=== PATIENT | male | born 1995 | race African-American/Black ===

== ENCOUNTER → 2020-08-31 | Day surgery (SDC) | payer OTHER ==
[~2020-08-31] MED LIST: ACET500T68 PO; ATOR20TA PO; CHLO4TAB20 PO; CICL6.1H4 IH; DOCU-109 PO; FLUO20CA20 PO; HYDR25TA PO; IPRATRPIUM/ALBUTEROL 0.5/2.5MG 3 ML NEBU. NEB PRN; IV RINGERS SOLUTION,LACTATED 1,000 ML IV SCH; LIDOCAINE 2% PF 5 ML VIAL. ONE; MIDAZOLAM HCL PF 2 MG/2 ML VIAL. IV ONE; MONT10TA80 PO; ONDANSETRON PF 4 MG/2 ML VIAL. IV PRN; PANT40TA6 PO; PROPOFOL 10,000 MCG/ML (20ML) VIAL IV ONE
--- NOTE | 2020-09-05 14:09 | PATHOLOGY ---
[facility] Accession Number: [id number] . 01 Material submitted: . stomach - ANTRUM BIOPSY. Modifiers: ANTRUM . 01 Clinical history: . PRE-OPERATIVE DIAGNOSIS: HEMATEMESIS OPERATIVE PROCEDURE: EGD . 02 Diagnosis: Gastric biopsies, antrum: - Active chronic gastritis, moderate. LBQ 09/05/2020 1036 Local . 02 Comment: Sections of the gastric antral biopsy show congestion and moderate active chronic inflammation. A properly controlled immunoperoxidase stain for Helicobacter is negative for Helicobacter organisms. There is no evidence of malignancy. (JPM/db; 09/05/2020) . Special stain performed: Immunoperoxidase stain for Helicobacter on A1 . 02 Electronically signed: . Marco Antonio Solis MD, Pathologist NPI- [id number] . 01 Gross description: . The specimen is received in formalin, labeled "Bandar Alston, antrum biopsy". Received are two segments of pale vila tissue measuring 0.2 and 0.6 cm in maximum dimensions. The specimen is submitted entirely in cassette A1. ([facility]; 09/04/2020) QAC/QAC 09/04/2020 1346 Local . 02 CPT . 032008, [id number] Specimen Comment: A courtesy copy of this report has been sent to [phone] Specimen Comment: Report sent to Performed at: 01 [facility] [address], [place] [id number] MD Enrique Diallo MD Phone: [phone] Performed at: 02 [facility] [address] [place], [place] [id number] MD Marco Antonio Solis MD Phone: [phone]
== END | disposition home or self-care (01) ==
LOC: SURG 10:53
PROVIDERS: ATTEND Internal Medicine Gastroenterology
DX: R12 Heartburn (principal); R11.2 Nausea with vomiting, unspecified; K92.0 Hematemesis; K29.50 Unspecified chronic gastritis without bleeding; K21.9 Gastro-esophageal reflux disease without esophagitis; Z79.899 Other long term (current) drug therapy
CPT/HCPCS: 43239; J2001; J2704; J7120

== ENCOUNTER → 2020-08-31 | Outpatient (CLI) | payer SELFPAY ==
[~2020-08-31] MED LIST changes: -IPRATRPIUM/ALBUTEROL 0.5/2.5MG 3 ML NEBU. NEB PRN; -IV RINGERS SOLUTION,LACTATED 1,000 ML IV SCH; -LIDOCAINE 2% PF 5 ML VIAL. ONE; -MIDAZOLAM HCL PF 2 MG/2 ML VIAL. IV ONE; -ONDANSETRON PF 4 MG/2 ML VIAL. IV PRN; -PROPOFOL 10,000 MCG/ML (20ML) VIAL IV ONE
== END ==
LOC: LAB 09:30 → EDSTATUS 09:49
PROVIDERS: ATTEND Nurse Anesthetist, Certified Registered
DX: Z01.812 Encounter for preprocedural laboratory examination (principal); R07.9 Chest pain, unspecified; K21.9 Gastro-esophageal reflux disease without esophagitis
CPT/HCPCS: 87426; U0003